=== PATIENT | female | born 1995 ===

== ENCOUNTER 2018-03-16 20:02 | Emergency (ER) | payer SELFPAY ==
--- NOTE | 2018-03-16 20:16 | EDM.PDOC ---
ED HPI GENERAL MEDICAL PROBLEM - General Stated Complaint: STOMACH HURTS Time Seen by Provider: 03/16/18 20:15 Source of Information: Reports: Patient History Limitations: Reports: No Limitations - History of Present Illness INITIAL COMMENTS - FREE TEXT/NARRATIVE: HISTORY AND PHYSICAL: History of present illness: 22-year-old female presenting the emergency department with chief complaint of abdominal pain with past medical history of stage V renal failure. Patient is initially from [place] and has recently moved to [place]. She does have stage V kidney failure and has been getting dialysis 3 times a week. Patient does state that she still is producing urine. She denies any palpitations, chest pain, shortness of breath, syncopal episodes, or focal neurologic deficits. States that she's had some pain with urination as well as some generalized abdominal pain. Her last dialysis was approximately 2 weeks ago when she was in [place]. She has not had dialysis since. Patient also has a past medical history of myelodysplastic syndrome, Kossman syndrome, leukemia, depression, anxiety, GERD and steroid-induced adrenal insufficiency. Initial blood pressure was in 180s systolic. Potassium was 5.2. Patient did have a white count of 16,000 and a positive urinalysis. Rocephin was started for this. Secondary to the patient's blood pressure as well as stage V kidney disease and need for dialysis I did talk to Dr. Giles, Nephrology / [facility], he stated that patient should come there by ambulance for dialysis and they will set her up with continued dialysis. Dr. Henry, hospitalist, accepted the patient for inpatient admission. CT of the abdomen did show nonobstructive uropathy. Multiple renal cysts and mildly higher than water attenuation ovoid low density lesions throughout the bilateral renal parenchyma with multiple associated nonobstructive renal calcifications which could be related to cyst watkins. There was no discrete ureteral calcium Haitians. No F Bimal of appendicitis, diverticulitis or high- grade mechanical bowel obstruction. Fluid-filled small bowel segments were nonstop ascitic. However may be beginnings of an enteritis. There was central endplate deformities in several lumbar vertebral bodies which radiology did question for sickle cell trait although fairly limited lumbar spine was involved in radiologic examination. Review of systems: As per history of present illness and below otherwise all systems reviewed and negative. Past medical history: As per history of present illness and as reviewed below otherwise noncontributory. Surgical history: As per history of present illness and as reviewed below otherwise noncontributory. Social history: No reported history of drug or alcohol abuse. Family history: As per history of present illness and as reviewed below otherwise noncontributory. Physical exam: HEENT: Atraumatic, normocephalic, pupils reactive, negative for conjunctival pallor or scleral icterus, mucous membranes moist, throat clear, neck supple, nontender, trachea midline. Lungs: Clear to auscultation, breath sounds equal bilaterally, chest nontender. Heart: S1S2, regular, negative for clicks, rubs, or JVD. Abdomen: Soft, nondistended, nontender. Negative for masses or hepatosplenomegaly. Negative for costovertebral tenderness. Pelvis: Stable nontender. Genitourinary: Deferred. Rectal: Deferred. Extremities: Atraumatic, negative for cords or calf pain. Neurovascular unremarkable. Neuro: Awake, alert, oriented. Cranial nerves II through XII unremarkable. Cerebellum unremarkable. Motor and sensory unremarkable throughout. Exam nonfocal. Diagnostics: CBC, CMP, mag, phos, chest x-ray, EKG, CT abdomen and pelvis Therapeutics: 1 g Rocephin IV Impression: Stage V renal failure Acute cystitis Plan: Please see above H&P Definitive disposition and diagnosis as appropriate pending reevaluation and review of above. vaginal area Pain Score (Numeric/FACES): 10 - Related Data Allergies Allergy/AdvReac Type Severity Reaction Status Date / Time Dairy Products Allergy Other Verified 03/16/18 22:55 red dye Allergy Hives Verified 03/16/18 22:55 vancomycin Allergy Cannot Verified 03/16/18 21:16 Remember premed IVIG Allergy Cannot Uncoded 03/16/18 22:55 Remember Home Meds: Home Meds Acetaminophen [Tylenol] 325 mg PO Q4HR 03/16/18 [History] Amylase/Lipase/Protease [Pancrelipase DR 5,000 Units] 12,000 units PO TID [History] Calcitriol [Rocaltrol] 0.25 mcg PO DAILY 03/16/18 [History] Calcium Carbonate [Tums] 500 mg PO DAILY 03/16/18 [History] FLUoxetine [PROzac] 20 mg PO DAILY 03/16/18 [History] Hydrocortisone Acetate [Proctocort] 30 mg RECTAL BID 03/16/18 [History] Ondansetron [Zofran ODT] 4 mg PO TID 03/16/18 [History] Ranitidine HCl [Zantac 75] 75 mg PO BID 03/16/18 [History] amLODIPine Besylate [Amlodipine Besylate] 5 mg PO BID 03/16/18 [History] cloNIDine [Catapres] 0.1 mg PO BID 03/16/18 [History] ED ROS GENERAL - Review of Systems Review Of Systems: ROS reveals no pertinent complaints other than HPI. ED EXAM, GENERAL - Physical Exam Exam: See Below Course - Vital Signs Last Recorded V/S: Last Vital Signs Temp 98.4 F 03/16/18 23:37 Pulse 100 03/16/18 23:37 Resp 18 03/16/18 23:37 BP 164/118 H 03/16/18 23:37 Pulse Ox 100 03/16/18 23:37 - Orders/Labs/Meds Orders: Active Orders 24 hr Category Date Time Status EKG Documentation Completion [RC] AM Care 03/16/18 20:40 Active Abdomen Pelvis wo Cont [CT] Stat Exams 03/16/18 21:43 Taken Chest 2V [CR] Stat Exams 03/16/18 20:40 Taken CHLAMYDIA AND GONORRHEA BY TMA Stat Lab 03/16/18 21:30 Received CULTURE BLOOD [BC] Stat Lab 03/16/18 20:58 Results CULTURE BLOOD [BC] Stat Lab 03/16/18 20:58 Results CULTURE URINE [RM] Stat Lab 03/16/18 21:39 Received TRICH/ANTOINETTE/CAND BY DNA PROBE [MOLEC] Stat Lab 03/16/18 20:40 Ordered cefTRIAXone [Rocephin in Dextrose,Iso-Osm 1 GM/50 ML] 1 Med 03/17/18 00:25 Active gm Premix Bag 1 bag IV ONETIME Blood Culture x2 Reflex Set [OM.PC] Stat Oth 03/16/18 21:09 Ordered Medication Orders Ceftriaxone Sodium/Dextrose 1 (gm/ Premix) 50 mls @ 100 mls/hr IV ONETIME ONE Stop: 03/17/18 00:54 Last Admin: 03/17/18 00:29 Dose: 100 mls/hr Labs: Laboratory Tests 03/16/18 03/16/18 03/16/18 Range/Units 20:58 20:58 20:58 WBC 16.45 H (4.0-11.0) K/uL RBC 3.53 L (4.30-5.90) M/uL Hgb 10.9 L (12.0-16.0) g/dL Hct 32.8 L (36.0-46.0) % MCV 92.9 (80.0-98.0) fL MCH 30.9 (27.0-32.0) pg MCHC 33.2 (31.0-37.0) g/dL RDW Std Deviation 45.9 (28.0-62.0) fl RDW Coeff of Matthew 14 (11.0-15.0) % Plt Count 187 (150-400) K/uL MPV 10.40 (7.40-12.00) fL Neut % (Auto) 68.0 (48.0-80.0) % Lymph % (Auto) 21.7 (16.0-40.0) % Major % (Auto) 8.1 (0.0-15.0) % Eos % (Auto) 1.8 (0.0-7.0) % Baso % (Auto) 0.4 (0.0-1.5) % Neut # (Auto) 11.2 H (1.4-5.7) K/uL Lymph # (Auto) 3.6 H (0.6-2.4) K/uL Major # (Auto) 1.3 H (0.0-0.8) K/uL Eos # (Auto) 0.3 (0.0-0.7) K/uL Baso # (Auto) 0.1 (0.0-0.1) K/uL Nucleated RBC % 0.0 /100WBC Nucleated RBCs # 0 K/uL Lactate 1.0 (0.20-2.00) mmol/L Sodium 139 (136-145) mmol/L Potassium 5.2 H (3.5-5.1) mmol/L Chloride 102 (98-107) mmol/L Carbon Dioxide 24.5 (21.0-32.0) mmol/L BUN 44 H (7.0-18.0) mg/dL Creatinine 5.4 H (0.6-1.0) mg/dL Est Cr Clr Drug Dosing TNP Estimated GFR (MDRD) 10.0 ml/min Glucose 84 (74-106) mg/dL Calcium 9.4 (8.5-10.1) mg/dL Phosphorus 4.1 (2.6-4.7) mg/dL Magnesium 2.6 H (1.8-2.4) mg/dL Total Bilirubin 0.3 (0.2-1.0) mg/dL AST 11 L (15-37) IU/L ALT 13 L (14-63) IU/L Alkaline Phosphatase 93 (46-116) U/L Total Protein 8.2 (6.4-8.2) g/dL Albumin 4.2 (3.4-5.0) g/dL Globulin 4.0 H (2.0-3.5) g/dL Albumin/Globulin Ratio 1.1 L (1.3-2.8) Urine Color Urine Appearance Urine pH (5.0-8.0) Ur Specific [place] (1.001-1.035) Urine Protein (NEGATIVE) mg/dL Urine Glucose (UA) (NEGATIVE) mg/dL Urine Ketones (NEGATIVE) mg/dL Urine Occult Blood (NEGATIVE) Urine Nitrite (NEGATIVE) Urine Bilirubin (NEGATIVE) Urine Urobilinogen (<2.0) EU/dL Ur Leukocyte Esterase (NEGATIVE) Urine RBC (0-2/HPF) Urine WBC (0-5/HPF) Ur Epithelial Cells (NONE-FEW) Ur Renal Epithelial Cell Urine Bacteria (NEGATIVE) Urinalysis Comment 03/16/18 Range/Units 21:30 WBC (4.0-11.0) K/uL RBC (4.30-5.90) M/uL Hgb (12.0-16.0) g/dL Hct (36.0-46.0) % MCV (80.0-98.0) fL MCH (27.0-32.0) pg MCHC (31.0-37.0) g/dL RDW Std Deviation (28.0-62.0) fl RDW Coeff of Matthew (11.0-15.0) % Plt Count (150-400) K/uL MPV (7.40-12.00) fL Neut % (Auto) (48.0-80.0) % Lymph % (Auto) (16.0-40.0) % Major % (Auto) (0.0-15.0) % Eos % (Auto) (0.0-7.0) % Baso % (Auto) (0.0-1.5) % Neut # (Auto) (1.4-5.7) K/uL Lymph # (Auto) (0.6-2.4) K/uL Major # (Auto) (0.0-0.8) K/uL Eos # (Auto) (0.0-0.7) K/uL Baso # (Auto) (0.0-0.1) K/uL Nucleated RBC % /100WBC Nucleated RBCs # K/uL Lactate (0.20-2.00) mmol/L Sodium (136-145) mmol/L Potassium (3.5-5.1) mmol/L Chloride (98-107) mmol/L Carbon Dioxide (21.0-32.0) mmol/L BUN (7.0-18.0) mg/dL Creatinine (0.6-1.0) mg/dL Est Cr Clr Drug Dosing Estimated GFR (MDRD) ml/min Glucose (74-106) mg/dL Calcium (8.5-10.1) mg/dL Phosphorus (2.6-4.7) mg/dL Magnesium (1.8-2.4) mg/dL Total Bilirubin (0.2-1.0) mg/dL AST (15-37) IU/L ALT (14-63) IU/L Alkaline Phosphatase (46-116) U/L Total Protein (6.4-8.2) g/dL Albumin (3.4-5.0) g/dL Globulin (2.0-3.5) g/dL Albumin/Globulin Ratio (1.3-2.8) Urine Color YELLOW Urine Appearance CLOUDY Urine pH 8.0 (5.0-8.0) Ur Specific [place] 1.020 (1.001-1.035) Urine Protein 100 (NEGATIVE) mg/dL Urine Glucose (UA) NEGATIVE (NEGATIVE) mg/dL Urine Ketones NEGATIVE (NEGATIVE) mg/dL Urine Occult Blood LARGE H (NEGATIVE) Urine Nitrite NEGATIVE (NEGATIVE) Urine Bilirubin NEGATIVE (NEGATIVE) Urine Urobilinogen 0.2 (<2.0) EU/dL Ur Leukocyte Esterase SMALL (NEGATIVE) Urine RBC 3-6 (0-2/HPF) Urine WBC 3-5 (0-5/HPF) Ur Epithelial Cells FEW (NONE-FEW) Ur Renal Epithelial Cell RARE Urine Bacteria 1+ H (NEGATIVE) Urinalysis Comment Meds: Medications Generic Name Dose Route Start Last Admin Trade Name Albert PRN Reason Stop Dose Admin Ceftriaxone Sodium/Dextrose 1 50 mls @ 100 mls/hr 03/17/18 00:25 03/17/18 00: 29 gm/ Premix IV 03/17/18 00:54 100 mls/hr ONETIME ONE Administration Discontinued Medications Generic Name Dose Route Start Last Admin Trade Name Freq PRN Reason Stop Dose Admin Sodium Chloride 1,000 mls @ 999 mls/hr 03/16/18 20:43 03/16/18 21:45 Normal Saline IV 03/16/18 21:43 0 mls/hr STAT ONE Infusion Ceftriaxone Sodium/Dextrose Confirm 03/17/18 00:27 03/17/18 00:33 Rocephin In Dextrose,Iso-Osm 1 Gm/50 Ml Administered 03/17/18 00:28 Not Given Dose 50 mls @ as directed .ROUTE .STK-MED ONE Departure - Departure Time of Disposition: 00:41 Disposition: DC/Tfer to Acute Hospital 02 Condition: Fair Clinical Impression: Stage 5 chronic kidney disease Hypertension Qualifiers: Hypertension type: renovascular hypertension Qualified Code(s): I15.0 - Renovascular hypertension Acute cystitis Qualifiers: Hematuria presence: without hematuria Qualified Code(s): N30.00 - Acute cystitis without hematuria - Discharge Information Referrals: PCP,None [Primary Care Provider] - - My Orders Last 24 Hours: My Active Orders 03/16/18 20:40 EKG Documentation Completion [RC] AM Chest 2V [CR] Stat TRICH/ANTOINETTE/CAND BY DNA PROBE [MOLEC] Stat 03/16/18 20:58 CULTURE BLOOD [BC] Stat CULTURE BLOOD [BC] Stat 03/16/18 21:09 Blood Culture x2 Reflex Set [OM.PC] Stat 03/16/18 21:30 CHLAMYDIA AND GONORRHEA BY TMA Stat 03/16/18 21:39 CULTURE URINE [RM] Stat 03/16/18 21:43 Abdomen Pelvis wo Cont [CT] Stat 03/17/18 00:25 cefTRIAXone [Rocephin in Dextrose,Iso-Osm 1 GM/50 ML] 1 gm Premix Bag 1 bag IV ONETIME - Assessment/Plan Last 24 Hours: My Active Orders 03/16/18 20:40 EKG Documentation Completion [RC] AM Chest 2V [CR] Stat TRICH/ANTOINETTE/CAND BY DNA PROBE [MOLEC] Stat 03/16/18 20:58 CULTURE BLOOD [BC] Stat CULTURE BLOOD [BC] Stat 03/16/18 21:09 Blood Culture x2 Reflex Set [OM.PC] Stat 03/16/18 21:30 CHLAMYDIA AND GONORRHEA BY TMA Stat 03/16/18 21:39 CULTURE URINE [RM] Stat 03/16/18 21:43 Abdomen Pelvis wo Cont [CT] Stat 03/17/18 00:25 cefTRIAXone [Rocephin in Dextrose,Iso-Osm 1 GM/50 ML] 1 gm Premix Bag 1 bag IV ONETIME
[2018-03-16] MEDS ORDERED: Sodium Chloride 0.9% 1,000 ML IV ONE (20:43)
[2018-03-16 21:31] LABS: CHLORIDE,CL 102 mmol/L (98-107); SODIUM,NA 139 mmol/L (136-145)
[2018-03-17] MEDS ORDERED: cefTRIAXone 1 GM in Premix Bag 1 BAG IV ONE (00:25)
--- NOTE | 2018-03-19 11:32 | CR ---
EXAM DATE: 03/16/18 PATIENT'S AGE: 22 Patient: PATRICIA ROBBINS Facility: [place], [place] Site . Site : 1996 Study: XRay Chest [id number]/5/2018 9:34:25 PM Ordering Physician: Carlos A Adan Final Report: Indication: Chest pain. Shortness of breath. Extremity numbness. The patient has stage right kidney failure. Patient has not had dialysis for 2 weeks. Normally gets 3 times per week. Technique: PA and lateral views of the chest were obtained. Comparison: None. Findings: The heart is normal in size. The lungs are clear. No infiltrate, pleural effusion, or pneumothorax is identified. Impression: No acute cardiopulmonary process Dictated by Ayla Swift MD @ Mar 16 2018 9:35PM (Electronic Signature) Report Signed by Proxy. CLAUDIA
--- NOTE | 2018-03-19 11:36 | CT ---
EXAM DATE: 03/16/18 PATIENT'S AGE: 22 Patient: PATRICIA ROBBINS Facility: [place], [place] Site . Site : 1995 Study: CT Abdomen -03/16/2018 10:22:36 PM Ordering Physician: Carlos A Adan Final Report: INDICATION: Abdominal pain TECHNIQUE: CT abdomen and pelvis without contrast. COMPARISON: None available FINDINGS: Lower chest: Decreased attenuation of the cardiac chambers suggestive of anemia. Liver: Unremarkable. Spleen: Unremarkable. Pancreas: Unremarkable. Gallbladder and bile ducts: Unremarkable. Adrenal glands: Unremarkable. Kidneys: Mildly decreased renal size bilaterally. Multiple cysts and mildly higher than water attenuation ovoid areas throughout the bilateral renal parenchyma. Multiple nonobstructive renal calcifications which could be associated with cysts watkins. No hydronephrosis. No discrete ureteral calcifications. GI tract: No high-grade mechanical bowel obstruction. Fluid-filled lower abdominal and pelvic small bowel segments are nonspecific. No evidence of appendicitis. No significant pericolonic changes. Vascular structures: Minor early atherosclerotic aortic calcifications. Lymph nodes: Unremarkable. Miscellaneous: No significant free fluid or free air. A tiny fat containing umbilical hernia. Several small calcifications in the medial proximal thighs, nonspecific. Pelvic Organs: A fairly diminutive uterus for the patient`s age. No bladder calcifications. Bones: Central endplate deformities in several lumbar vertebral bodies. IMPRESSION: No obstructive uropathy. Multiple renal cysts and mildly higher than water attenuation ovoid low-density lesions throughout the bilateral renal parenchyma with multiple associated nonobstructive renal calcifications which could be related to cyst watkins. Followup with sonography. No discrete ureteral calcifications. No evidence of appendicitis, diverticulitis or high-grade mechanical bowel obstruction. Fluid-filled small bowel segments are nonspecific. Correlate clinically to exclude enteritis. Central endplate deformities in several lumbar vertebral bodies. Question sickle cell trait, although the fairly limited lumbar spine involvement is atypical. Dictated by Tiago Corey MD @ 03/16/2018 10:51:53 PM Please note that all CT scans at this facility use dose modulation, iterative reconstruction, and/or weight-based dosing when appropriate to reduce radiation dose to as low as reasonably achievable. Dictated by: Tiago Corey MD @ 03/16/2018 22:52:04 (Electronic Signature) Report Signed by Proxy. MTDD
== END 2018-03-17 00:45 ==
LOC: MW.ED 20:02
DX: N30.00 Acute cystitis without hematuria (principal); I15.0 Renovascular hypertension; N18.5 Chronic kidney disease, stage 5; Z91.041 Radiographic dye allergy status; Z88.8 Allergy status to other drugs, medicaments and biological substances; Z91.011 Allergy to milk products; Z79.899 Other long term (current) drug therapy
CPT/HCPCS: 36415; 71046; 74176; 80053; 81001; 83605; 83735; 84100; 85025; 87040; 87086; 87491; 87591; 93005; 96360; 99285; J0696; J7040; 99284